=== PATIENT | male | born 1940 | race Caucasian/White ===

== ENCOUNTER → 2021-02-24 | Day surgery (SDC) | payer OTHER, BC ==
[~2021-02-24] VITALS: Ht 177.8 cm; Wt 80.3 kg
[~2021-02-24] MED LIST: ASA81BEC PO; FLOMAX0.4 MG PO; PRESERVISION A1 EAC2 PO; SINGULAIR 10 MG10 M1 PO; VITAMIN B122500 MC1 PO
--- NOTE | ~2021-02-24 | O ---
[facility] [place] [place] [facility] [address] OPERATIVE REPORT Name: IVETTEMIK CASE Room #: [facility]..#: [id number] Admission: 02/24/21 Attend Phys: Pramod Navarro MD Discharge: Date of : 44 Report #: [id number] THIS REPORT FOR: cc: Blair Zaldivar MD,Blair Navarro,Pramod CARPIO ~ cc: Blair Sutherland MD DATE OF SERVICE: 02/24/2021 PREOPERATIVE DIAGNOSES: 1. Squamous cell carcinoma, right temporal scalp. 2. Mohs defect 6 x 7 cm right temporal scalp. POSTOPERATIVE DIAGNOSES: 1. Squamous cell carcinoma, right temporal scalp. 2. Mohs defect 6 x 7 cm right temporal scalp. PROCEDURE PERFORMED: 1. Adjacent tissue transfer of the right cheek, 30-60 square cm, code 87063. 2. Right direct brow lift. 3. Scar release of the face code 67564. PRIMARY SURGEON: Pramod Navarro MD MILITARY PROFESSIONAL: None. TYPE OF ANESTHESIA: General. COMPLICATIONS: None. ESTIMATED BLOOD LOSS: Approximately 50 mL. SPECIMENS: None. DRAIN: One right neck drain. INDICATIONS: The patient is a 81-year-old male with a history of lymphoma and several cutaneous malignancies who underwent Mohs micrographic excision of a squamous cell carcinoma of the right temporal scalp approximately one week ago. He was referred to me due to the size and complexity of the defect and he was counseled in the office about reconstructive options. He agreed to the above-named procedures and signed consent in our office. DESCRIPTION OF PROCEDURE: The patient was identified in the preoperative area before being transported to the operating room and placed supine on the [facility] [place] [place] [address] [place] [address] OPERATIVE REPORT Name: MIK HARGROVE Room #: [place] [facility] [place] M.R.#: [id number] Admission: 02/24/21 Attend Phys: Pramod Navarro MD Discharge: Date of : 44 Report #: [id number] operating table. At this point, general anesthesia was induced and a timeout was called to ensure patient identity and procedure to be performed. At this point, the defect was measured to be 6 x 7 cm and circular in nature of the right temporal scalp. This area was injected with 1% lidocaine with 1:100,000 epinephrine solution for a total of 20 mL peripherally around the defect and down on to the right cheek and neck for a planned vertically oriented cervicofacial flap. At this point, the patient was prepped and draped in the normal sterile fashion. Starting first, the wound was sharply debrided of any granulation tissue and all wound edges were freshened. I then began elevating a right cheek flap in the subcutaneous plane, staying just deep to the all the hair follicles. This plane was maintained down over the angle of the mandible and down into the neck, staying superficial to the platysma muscle. Of note, the flap was left pedicled just lateral to the nasolabial fold inferiorly and lateral canthus more superiorly. A releasing incision was then made in front of the patient's right ear, wrapping around his earlobe and then down onto a natural skin rhytid of the neck. Following this, all the way to near midline. This was released with a #15 blade and the flap was then adequately mobile to swing superiorly up into the temporal scalp defect. This resulted in excellent closure in an inverted V shape. The flap was then sutured in layers using 3-0 Monocryl sutures in a deep interrupted fashion. Of note, the posterior aspect of the flap was not quite closing the posterior aspect of the defect. Therefore, a releasing scalp flap was made just superior to the helical attachment superiorly, which allowed adequate advancement and rotation of the scalp anteriorly to help close the defect. This also was closed in layers using 3-0 Monocryl. At this point, all portions of the flap were reapproximated in the deep layer again using 3-0 Monocryl down in front of the ear and down into the neck. A postauricular drain was placed and sutured to the skin using 3-0 nylon. At this point, all skin incisions were reapproximated using 5-0 plain gut suture in a running fashion. Of note, near the lateral canthus, due to the vertical pole of the flap, it resulted in a slightly vertical bar of tissue. Therefore, I elected to perform a small Z-plasty in this area to reorient the scars more parallel with the patient's lateral canthal rhytids. These also were closed using 5-0 fast absorbing gut suture. At this point, the drain was hooked up to suction while attention was then turned to the patient's right brow. This area was injected with 1% lidocaine with 1:100,000 epinephrine solution and a direct brow lift was performed. Skin markings were made for a total of an 8 mm left in the middle portion of the brow and tapering to approximately 5-6 mm medially and laterally. This was incised with a 15 blade in a tracheophytic fashion along the upper eyebrow hairs and then the skin was excised in a subcutaneous plane to remove the skin. Hemostasis was then achieved using bipolar cautery and this was again closed in layers using 3-0 Monocryl, followed by 5-0 plain gut suture in a running fashion to reapproximate the skin edges. At this point, I was very pleased with the cosmetic and functional outcomes of the procedure and I elected to conclude the case. Please note that all instrument, sponge and needle counts were correct x2. The patient was reversed [facility] [place] [place] [address] [place] [address] OPERATIVE REPORT Name: MIK HARGROVE Room #: [facility]..#: [id number] Admission: 02/24/21 Attend Phys: Pramod Navarro MD Discharge: Date of : 44 Report #: [id number] from anesthesia and transported to PACU in stable condition. DISPOSITION: The patient will be discharged after meeting general discharge criteria. He has been given prescriptions for pain medication and antibiotics to be used as directed. He will be given drain care instructions as well. Wound care instructions have been given to the patient's both in verbal and written format. I will follow up with him in approximately 3-5 days for a drain pull and then in approximately 10-14 days for a postoperative check. By: [id number] Pramod Navarro MD /nt
[2021-02-24 09:47] VITALS: BP 140/69
[2021-02-24 14:19] VITALS: BP 140/69
[2021-02-24 14:22] VITALS: BP 140/69
== END | disposition home or self-care (01) ==
LOC: OR 08:18
PROVIDERS: ATTEND Otolaryngology
DX: C44.42 Squamous cell carcinoma of skin of scalp and neck (principal); M95.2 Other acquired deformity of head; L90.5 Scar conditions and fibrosis of skin; N40.0 Benign prostatic hyperplasia without lower urinary tract symptoms; Z98.890 Other specified postprocedural states; Z79.899 Other long term (current) drug therapy; Z98.41 Cataract extraction status, right eye; Z98.42 Cataract extraction status, left eye; Z85.72 Personal history of non-Hodgkin lymphomas; Z20.822 Contact with and (suspected) exposure to COVID-19; Z85.828 Personal history of other malignant neoplasm of skin; Z88.0 Allergy status to penicillin; Z91.041 Radiographic dye allergy status; Z88.8 Allergy status to other drugs, medicaments and biological substances
CPT/HCPCS: 50010; 50101; 50331; 50386; 50403; 51412; 56526; 56528; 57006; 62110; 62900; 70005